=== PATIENT | male | born 1985 | race Caucasian/White ===

== ENCOUNTER → 2018-09-13 | Outpatient (CLI) | payer OTHER | END | disposition home or self-care (01) | LOC: HKI 08:50 | DX: S73.101D Unspecified sprain of right hip, subsequent encounter (principal); X58.XXXD Exposure to other specified factors, subsequent encounter; I45.6 Pre-excitation syndrome | CPT/HCPCS: 73502 ==

== ENCOUNTER 2018-12-16 05:33 | Day surgery (SDC) | payer OTHER ==
[2018-12-16] MEDS: DEXAMETHASONE 1 MG TAB PO (06:15)
[2018-12-16] MEDS: GABAPENTIN 300 MG CAP PO (06:15)
[2018-12-16] MEDS ORDERED: CEFAZOLIN 2 GM/50 ML (PMX) 50 ML IVPB (06:30)
[2018-12-16] MEDS ORDERED: BUPIVACAINE 0.5% (SDV) 30 ML, morphine SULFATE (PF) 8 MG, EPINEPHrine 0.3 MG, KETOROLAC... IRR (06:30)
[2018-12-16] MEDS ORDERED: TRANEXAMIC ACID 1GM/100ML(PMX) 100 ML IVPB (06:30)
[2018-12-16] MEDS ORDERED: MIDAZOLAM 1 MG/ML 2 ML INJ (06:43)
[2018-12-16] MEDS ORDERED: PROPOFOL 20 ML (06:43)
[2018-12-16] MEDS ORDERED: LIDOCAINE 2% (SDV) 5 ML INJ (06:43)
[2018-12-16] MEDS ORDERED: FENTAnyl 50 MCG/ML VIAL (06:43)
[2018-12-16] MEDS ORDERED: ONDANSETRON 4 MG INJ (06:45)
[2018-12-16] MEDS ORDERED: FENTAnyl 50 MCG/ML VIAL IV ×2 (07:00)
[2018-12-16] MEDS ORDERED: MEPERIDINE 25 MG INJ IV (07:00)
[2018-12-16] MEDS ORDERED: CEFAZOLIN 1 GM INJ (07:00)
[2018-12-16] MEDS ORDERED: LABETALOL HCL 20MG INJ (07:00)
[2018-12-16] MEDS ORDERED: DEXAMETHASONE 4 MG/ML 5 ML INJ (07:00)
[2018-12-16] MEDS ORDERED: DIPHENHYDRAMINE 50 MG INJ IV (07:00)
[2018-12-16] MEDS ORDERED: HYDROmorphONE 1 MG/5 ML IV SYRINGE IV ×2 (07:00)
[2018-12-16] MEDS ORDERED: IPRATROPIUM (NEB) 0.5 MG/2.5 ML AMP HHN (07:00)
[2018-12-16] MEDS ORDERED: METOCLOPRAMIDE 10 MG INJ (07:00)
[2018-12-16] MEDS ORDERED: LEVALBUTEROL (NEB) 1.25 MG/0.5 ML AMP HHN (07:00)
[2018-12-16] MEDS ORDERED: PROPOFOL 200 MG INJ (07:00)
[2018-12-16] MEDS ORDERED: ONDANSETRON 4 MG INJ IV (07:00)
[2018-12-16] MEDS ORDERED: HYDROmorphONE 2 MG/ML SYG (07:27)
[2018-12-16] MEDS ORDERED: hydrALAzine 20 MG INJ (07:33)
[2018-12-16] MEDS ORDERED: EPINEPHrine 1 MG/ML 30 ML INJ (07:37)
== END 2018-12-16 11:30 | disposition home or self-care (01) ==
LOC: SDS 05:33
DX: S73.191D Other sprain of right hip, subsequent encounter (principal); X58.XXXD Exposure to other specified factors, subsequent encounter; M25.851 Other specified joint disorders, right hip; I49.9 Cardiac arrhythmia, unspecified
CPT/HCPCS: 29914; 73530; 93005